=== PATIENT | male | born 1960 | race African-American/Black ===

== ENCOUNTER 2024-05-11 09:57 | Emergency (ER) | payer OTHER ==
[~2024-05-11] VITALS: Ht 175.3 cm; Wt 104.5 kg
[2024-05-11 10:06] VITALS: BP 141/81; PULSE 90; RESP 16; TEMP 98.9; O2SAT 98
[2024-05-11] MEDS ORDERED: HYDR25TA2 PO (10:09)
[2024-05-11] MEDS ORDERED: ATOR40TA28 PO (10:09)
[2024-05-11 11:10] LABS: BASOPHILS % (AUTO) 0.8 % (0.0-2.0); EOSINOPHILS % (AUTO) 0.9 % (1.0-6.0); HEMATOCRIT 48.3 % (41-53); HEMOGLOBIN 15.6 g/dL (13.5-17.5); LYMPHOCYTES # (AUTO) 1.7 K/uL (1.0-4.8); LYMPHOCYTES % (AUTO) 27.1 % (22.0-44.0); MEAN CORPUSCULAR HEMOGLOBIN 30.1 pg (26.0-34.0); MEAN CORPUSCULAR HGB CONC 32.2 G/dL (31.0-37.0); MEAN CORPUSCULAR VOLUME 94 fL (80-100); MONOCYTES # (AUTO) 0.6 K/uL (0.1-1.0); MONOCYTES % (AUTO) 9.6 % (2.0-9.0); NEUTROPHILS # (AUTO) 3.8 K/uL (1.8-7.7); NEUTROPHILS % (AUTO) 61.6 % (40.0-70.0); PLATELET COUNT (AUTO) 259 K/uL (150-450); RED BLOOD CELL COUNT(AUTO) 5.17 MIL/uL (4.50-5.90); RED CELL DISTRIBUTION WIDTH 14.7 % (11.5-14.5); WHITE BLOOD COUNT (AUTO) 6.2 K/uL (4.5-11.0)
[2024-05-11] MEDS ORDERED: IOHEXOL 350 MG/ML 100 ML VIAL ONE (11:40)
[2024-05-11] MEDS ORDERED: SODIUM CHLORIDE 0.9% 100 ML ONE (11:40)
[2024-05-11] MEDS: ONDANSETRON HCL 4 MG/2 ML VIAL IVP ONE (11:52)
[2024-05-11] MEDS: MAG HYDROX/ALUMINUM HYD/SIMETH 30 ML SUSPENSION UDCUP PO ONE (11:52)
[2024-05-11] MEDS: FAMOTIDINE 20 MG/2 ML VIAL IVP ONE (11:52)
[2024-05-11] MEDS: SODIUM CHLORIDE 0.9% 1,000 ML IV ONE (11:52)
[2024-05-11] MEDS: KETOROLAC TROMETHAMINE 30 MG/ML VIAL IVP ONE (11:53)
[2024-05-11 11:54] LABS: ANION GAP 12 mmol/L (8-16); CARBON DIOXIDE 27 mmol/L (22-29); CHLORIDE 102 mmol/L (98-107); CREATININE 1.38 mg/dL (0.60-1.30); GLOMERULAR FILTR. RATE CALC > 60 mL/min (>60); GLUCOSE,RANDOM 96 mg/dL (70-110); POTASSIUM 4.2 mmol/L (3.5-5.1); SODIUM SERUM 141 mmol/L (136-145); TROPONIN I-HIGH SENSITIVITY 10 ng/L (<76); UREA NITROGEN, BLOOD 16 mg/dL (7-18)
[2024-05-11 11:59] LABS: ALANINE AMINOTRANSFERASE 23 U/L (12-78); ALBUMIN 3.8 g/dL (3.4-5.0); ALKALINE PHOSPHATASE 103 U/L (46-116); ASPARTATE AMINOTRANSFERASE 28 U/L (15-37); LIPASE 32 U/L (16-77); TOTAL PROTEIN, SERUM 8.2 g/dL (6.4-8.2)
[2024-05-11 12:53] LABS: COVID AG,FIA SOURCE NASAL SWAB
[2024-05-11 13:35] LABS: SARS-COV2 (COVID) ANTIGEN,FIA Negative (Negative)
[2024-05-11] MEDS ORDERED: ONDA-104 PO (13:47)
== END 2024-05-11 14:03 | disposition home or self-care (01) ==
LOC: EMS 09:57
DX: K52.9 Noninfective gastroenteritis and colitis, unspecified (principal); I10 Essential (primary) hypertension; E78.00 Pure hypercholesterolemia, unspecified; H54.8 Legal blindness, as defined in USA; Z90.49 Acquired absence of other specified parts of digestive tract; Z90.81 Acquired absence of spleen; Z79.899 Other long term (current) drug therapy; Z20.822 Contact with and (suspected) exposure to COVID-19
CPT/HCPCS: 99285; 74177; 96374; 96375; 71045; 96361; 87426; 80048; 80076; 83690; 84484; 85025; 36415; 93005; Q9967; J3490; J1885; J2405; J7030; J7050